=== PATIENT | male | born 1995 | race Two or more races ===

== ENCOUNTER 2017-04-08 22:39 | Emergency (ER) | payer SELFPAY ==
[~2017-04-08] VITALS: Ht 182.9 cm; Wt 66.0 kg
[2017-04-08] MEDS ORDERED: KETOROLAC 60MG/2ML VIAL IM ONE (23:45)
[2017-04-09 00:44] VITALS: BP 110/63
== END 2017-04-09 00:46 | disposition home or self-care (01) ==
LOC: ER 22:39
DX: S42.032A Displaced fracture of lateral end of left clavicle, initial encounter for closed fracture (principal); F17.210 Nicotine dependence, cigarettes, uncomplicated; V00.131A Fall from skateboard, initial encounter; Y93.89 Activity, other specified; Y92.89 Other specified places as the place of occurrence of the external cause
CPT/HCPCS: 73030; 96372; 99284; J1885; Z7610; A4565

== ENCOUNTER 2021-06-05 16:51 | Emergency (ER) | payer MEDICAID, OTHER ==
[~2021-06-05] VITALS: Ht 182.9 cm; Wt 84.0 kg
[2021-06-05] MEDS ORDERED: MAGNESIUM/ALUMINUM HYDROXIDE/SIMETHICONE 30ML UDC PO STA (19:47)
[2021-06-05] MEDS ORDERED: FAMOTIDINE 20MG/2ML VIAL IV STA (19:47)
[2021-06-05] MEDS ORDERED: VISCOUS LIDOCAINE 2% 15 ML UDC PO STA (19:47)
[2021-06-05] MEDS ORDERED: SODIUM CHLORIDE 0.9% 1,000 ML IV ONE (20:00)
[2021-06-05 20:18] LABS: HEMATOCRIT. 47.7 % (42.0-52.0); HEMOGLOBIN. 15.9 g/dL (14.0-18.0); MEAN CORPUSCULAR HEMOGLOBIN 26.6 pg (28.0-32.0); MEAN CORPUSCULAR VOLUME 80.2 fL (80.0-94.0); MEAN PLATELET VOLUME 8.3 fl (7.4-10.4); PLATELET 299 x1000/uL (130-400); RED BLOOD CELL COUNT 5.95 mill/uL (4.7-6.1); RED CELL DISTRIBUTION WIDTH 15.4 % (11.6-14.6)
[2021-06-05 20:23] LABS: CHLORIDE 103 mEq/L (98-107)
[2021-06-05 20:29] LABS: ETHANOL BLOOD < 10 mg/dL
[2021-06-05 20:48] LABS: CLARITY URINE CLEAR (CLEAR); COLOR URINE YELLOW (YELLOW); KETONES URINE 1+ (NEGATIVE); LEUKOCYTE ESTERASE URINE NEGATIVE (NEGATIVE); NITRITE URINE NEGATIVE (NEGATIVE); OCCULT BLOOD URINE NEGATIVE (NEGATIVE); PH URINE 6.5 (4.5-8.0); PROTEIN URINE TRACE (NEGATIVE); SPECIFIC GRAVITY URINE 1.031 (1.005-1.030); UROBILINOGEN URINE 0.2 E.U./dL (0.2-1.0)
[2021-06-05 21:03] LABS: *AMPHETAMINES SCREEN URINE NEGATIVE (NEGATIVE); *BARBITURATES SCREEN URINE NEGATIVE (NEGATIVE); *BENZODIAZEPINES SCREEN URINE NEGATIVE (NEGATIVE); *COCAINE SCREEN URINE NEGATIVE (NEGATIVE)
[2021-06-05 21:04] LABS: CANNABINOID URINE SCREEN PRESUMTIVE POSITIVE (NEGATIVE); METHADONE URINE SCREEN NEGATIVE (NEGATIVE); OPIATES URINE SCREEN NEGATIVE (NEGATIVE); PHENCYCLIDINE URINE SCREEN NEGATIVE (NEGATIVE)
[2021-06-05] MEDS ORDERED: ONDA4TAB5 MT (21:41)
[2021-06-05] MEDS ORDERED: FAMO-135 MT (21:41)
[2021-06-05 21:52] LABS: PLATELET ESTIMATE NORMAL
[2021-06-05 22:08] VITALS: BP 132/88
== END 2021-06-05 22:09 | disposition home or self-care (01) ==
LOC: ER 16:51
DX: R10.13 Epigastric pain (principal); R11.2 Nausea with vomiting, unspecified; K76.0 Fatty (change of) liver, not elsewhere classified; Z98.890 Other specified postprocedural states
CPT/HCPCS: 36415; 76705; 80053; 80305; 80320; 81003; 83690; 85025; 96361; 96374; 99284; J3490; J7030; G0480

== ENCOUNTER 2022-08-17 03:01 | Emergency (ER) | payer MEDICAID, OTHER ==
[~2022-08-17] VITALS: Ht 182.9 cm; Wt 95.2 kg
[~2022-08-17 03:01] MED LIST: FAMO-135 MT; ONDA4TAB5 MT
[2022-08-17] MEDS ORDERED: KETOROLAC 30MG/ML VIAL IV ONE (05:15)
[2022-08-17] MEDS ORDERED: IBUP-2028 PO (06:08)
[2022-08-17 06:12] VITALS: BP 114/72
== END 2022-08-17 06:52 | disposition home or self-care (01) ==
LOC: ER 03:01
DX: M25.512 Pain in left shoulder (principal); Z98.890 Other specified postprocedural states
CPT/HCPCS: 73030; 96374; 99283; J1885; L3670